=== PATIENT | female | born 2000 | race Caucasian/White ===

== ENCOUNTER 2024-08-12 08:00 | Inpatient (IN) | payer SELFPAY ==
[2024-08-12] VITALS (84 sets, daily range): BP systolic 81–144; BP diastolic 51–88; PULSE 84–113; RESP 16–18; TEMP 36.2–37.1; O2SAT 91–100; BMI 23.5
[2024-08-12 07:59] LABS: ROM Internal Control Test YES-OK TO RESULT pt. (Internal QC)
[2024-08-12 08:01] LABS: ROM Patient Test POSITIVE (Negative); Record Kit Lot#, ROM+ K3358
[2024-08-12] MEDS: Lactated Ringers 1,000 ML 999 ML IV (08:10)
[2024-08-12 08:25] LABS: Mucous, Urine 0 SEEN /hpf (<or=2+); White Blood Cells 0 SEEN /hpf (0-5)
[2024-08-12] MEDS: Nalbuphine 10 MG/ML Ampul 5 MG IV (08:33)
[2024-08-12 08:40] LABS: Absolute Lymphocyte Count 1.27 X10^3/uL (0.83-4.51); Absolute Neutrophil Count 12.6 X10^3/uL (2.0-7.7); Basophil# 0.04 X10^3/uL; Basophil% 0.3 % (0-1); Hematocrit 39.1 % (37-47); Hemoglobin 13.9 g/dL (12.0-15.0); Lymphocyte # 1.27 X10^3/ul (0.83-4.51); Lymphocyte % 8.7 % (19-41); Mean Corp Hgb Conc 35.5 g/dL (32-36); Mean Corpuscular Hgb 30.3 pg (27.0-32.0); Mean Corpuscular Volume 85.4 fL (81-99); Monocyte# 0.68 X10^3/uL; Monocyte% 4.6 % (0-10); NRBC Flagged by Analyzer 0 % (0-5); Neutrophil # 12.55 X10^3/uL (2.7-7.7); Neutrophil % 85.6 % (47-70); Platelet Count 242 K/mm3 (150-450); RBC Distribution Width CV 12.9 % (11.6-14.6); RBC Distribution Width SD 39.4 fl (35.1-43.9); Red Blood Count 4.58 M/mm3 (4.2-5.4); White Blood Count 14.7 K/mm3 (4.4-11.0)
[2024-08-12 08:43] LABS: Color, Urine Yellow (Yellow); Glucose, Dipstick Normal (Normal); Leukocyte Esterase-Dipstick Negative /ul (Negative); Nitrite-Dipstick Negative (Negative); Occult Blood-Urine 150 /ul (Negative); Protein-Dipstick 30 mg/dl (Negative); Urine Bilirubin Dipstick Negative (Negative); Urine Clarity Sl. Cloudy (Clear); Urine Urobilinogen Normal (Normal)
[2024-08-12 08:46] LABS: Ketone-Dipstick 150 mg/dl (Negative)
[2024-08-12 08:47] LABS: Protein, Urine (Random) 32.7 mg/dL (0.0-12.0); Protein:Creat Ratio 214 mg/g CRE (0-200)
[2024-08-12 08:52] LABS: Bacteria 1+ /hpf (None Seen); Red Blood Cells-Urine 0-5 SEEN /hpf (0-5); Squamous Epithelial Cells - UA 0-5 SEEN /hpf (5-10)
[2024-08-12] MEDS: Lactated Ringers 1,000 ML 200 ML IV (09:00)
[2024-08-12 09:30] LABS: Hepatitis C Antibody Nonreactive (Nonreactive)
[2024-08-12 09:43] LABS: EST Glomerular Filtration Rate 139 (>60); HIV Nonreactive (Nonreactive); Hepatitis B Surface Antigen Nonreactive (Nonreactive); Rubella IgG Nonreactive (Nonreactive); Syphilis Antibodies Nonreactive (Nonreactive)
[2024-08-12] MEDS: fentaNYL-bupivacaine (epidural) 100 ML BAG EPIDURAL (09:47)
[2024-08-12 09:55] LABS: ALB/GLOB Ratio 1.3 RATIO (0.9-2.4); AST(SGOT) 19 U/L (<=31); Alanine Aminotransfer ALT/SGPT 15 U/L (<=34); Albumin, Serum 3.9 g/dL (3.5-5.0); Alkaline Phosphatase 140 U/L (35-104); Anion Gap 13 (5-15); BUN 8 mg/dL (4-19); BUN/Creat Ratio 15.6 RATIO (10-20); Calcium,Total 9.4 mg/dL (7.6-11.0); Carbon Dioxide 20.1 mmol/L (21.0-32.0); Chloride 103 mmol/L (98-108); Estimated Creatinine Clearance 165.22 ml/min (50-250); Globulin 2.9 g/dL (2.2-4.2); Glucose 100 mg/dL (70-99); Potassium 3.8 mmol/L (3.3-5.1); Protein, Total 6.8 g/dL (5.9-8.4); Sodium Level 136 mmol/L (133-145); Total Bilirubin 0.61 mg/dL (0.00-1.30)
--- NOTE | 2024-08-12 09:56 | PCM.HP.OB ---
HPI - General General Date of Admission: 08/12/24 HPI Narrative SIMA JOHNSON, is a 23 F @ 39.4 weeks based on LMP who presents from [facility] with inability to tolerate labor at home- reports has been in labor since yesterday- strong contractions every few minutes ? 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 pt unable to tolerate fluids overnight due to pain- was vomiting. PFSH PFSH Allergy/AdvReac Type Severity Reaction Status Date / Time No Known Allergies Allergy Verified 08/12/24 07:18 NST FHR Rate Baby A Baseline: 130 Variability:: Moderate Accelerations:: 15 x 15 Decelerations:: None NST Reactive:: Yes FHR Category:: Category I Uterine Activity:: irregular Vital Signs Vital Signs Vital Signs: 08/12/24 07:13 08/12/24 07:13 08/12/24 07:13 Temperature 97.7 F L Temperature Source Temporal Pulse Rate Respiratory Rate 16 Blood Pressure BP Systolic BP Diastolic Pulse Ox 08/12/24 07:16 08/12/24 07:16 08/12/24 09:00 Temperature Temperature Source Pulse Rate 108 H Respiratory Rate Blood Pressure 114/68 143/80 H BP Systolic 114 143 BP Diastolic 68 80 Pulse Ox 08/12/24 09:00 08/12/24 09:00 08/12/24 09:05 Temperature Temperature Source Pulse Rate 97 99 Respiratory Rate Blood Pressure BP Systolic BP Diastolic Pulse Ox 98 08/12/24 09:05 08/12/24 09:06 08/12/24 09:06 Temperature Temperature Source Pulse Rate 96 Respiratory Rate Blood Pressure 128/79 H BP Systolic 128 BP Diastolic 79 Pulse Ox 98 08/12/24 09:10 08/12/24 09:10 08/12/24 09:12 Temperature Temperature Source Pulse Rate 96 Respiratory Rate Blood Pressure 103/68 BP Systolic 103 BP Diastolic 68 Pulse Ox 97 08/12/24 09:12 08/12/24 09:15 08/12/24 09:15 Temperature Temperature Source Pulse Rate 106 H 109 H Respiratory Rate Blood Pressure 102/62 BP Systolic 102 BP Diastolic 62 Pulse Ox 08/12/24 09:15 08/12/24 09:15 08/12/24 09:20 Temperature Temperature Source Pulse Rate 104 H Respiratory Rate Blood Pressure 106/57 L BP Systolic 106 BP Diastolic 57 Pulse Ox 97 08/12/24 09:20 08/12/24 09:20 08/12/24 09:25 Temperature Temperature Source Pulse Rate 113 H Respiratory Rate Blood Pressure 101/56 L BP Systolic 101 BP Diastolic 56 Pulse Ox 98 08/12/24 09:25 08/12/24 09:31 08/12/24 09:31 Temperature Temperature Source Pulse Rate 109 H 100 Respiratory Rate Blood Pressure 110/66 BP Systolic 110 BP Diastolic 66 Pulse Ox 08/12/24 09:35 08/12/24 09:35 08/12/24 09:41 Temperature Temperature Source Pulse Rate 97 Respiratory Rate Blood Pressure 101/61 116/65 BP Systolic 101 116 BP Diastolic 61 65 Pulse Ox 08/12/24 09:41 08/12/24 09:42 08/12/24 09:42 Temperature Temperature Source Pulse Rate 100 107 H Respiratory Rate Blood Pressure BP Systolic BP Diastolic Pulse Ox 91 08/12/24 09:42 08/12/24 09:42 08/12/24 09:45 Temperature Temperature Source Pulse Rate 93 Respiratory Rate Blood Pressure 106/70 BP Systolic 106 BP Diastolic 70 Pulse Ox 98 08/12/24 09:45 08/12/24 09:47 08/12/24 09:47 Temperature Temperature Source Pulse Rate 100 96 Respiratory Rate Blood Pressure BP Systolic BP Diastolic Pulse Ox 99 08/12/24 09:50 08/12/24 09:50 08/12/24 09:52 Temperature Temperature Source Pulse Rate 113 H 111 H Respiratory Rate Blood Pressure 99/64 BP Systolic 99 BP Diastolic 64 Pulse Ox 08/12/24 09:52 Temperature Temperature Source Pulse Rate Respiratory Rate Blood Pressure BP Systolic BP Diastolic Pulse Ox 99 Weight Weight: 66.1 kg Body Mass Index (BMI) 23.5 Physical Exam Narrative VE: 2/90/-2 IUPC placed- forebag ruptured. Const alert and oriented x3 General Appearance: cooperative HEENT normocephalic GI GI Narrative: Gravid, non tender to palpation. OB / External & Speculum: external exam normal Extremity normal to inspection Skin no rashes or lesions noted Neuro oriented x3 and CN's II-XII intact bilaterally Psych Appearance: grossly normal Labs Labs Labs: Blood Type O POSITIVE Antibody Screen NEGATIVE Hct 39.1 % (37-47) Hgb 13.9 g/dL (12.0-15.0) Syphilis Total Ab Nonreactive (Nonreactive) Rubella IgG Antibody Nonreactive (Nonreactive) Hep Bs Antigen Nonreactive (Nonreactive) Hepatitis C Antibody Nonreactive (Nonreactive) HIV 1&2 Antibody Nonreactive (Nonreactive) Assessment & Plan (1) No care in current : QUALIFIERS: Trimester: third trimester Qualified Code(s): O09.33 - Supervision of with insufficient care, third trimester (2) 39 weeks gestation of : (3) SROM (spontaneous rupture of membranes): PLAN: Plan Admit to L&D Mont[facility] FHR/TOCO Epidural if requested for pain Monitor VS Anticipate labs to be drawn ROM plus was positive start pitocin pelvis feels adequate- EFW 7lbs
[2024-08-12 10:01] LABS: Buprenorphine Urine NEGATIVE (< 200 ng/mL); Fentanyl, Urine NEGATIVE; Oxycodone, Urine NEGATIVE (< 100 ng/mL)
[2024-08-12 10:05] LABS: Amphetamine Urine NEGATIVE (<1000 ng/mL); Barbiturate Urine NEGATIVE (< 200 ng/mL); Benzodiazepine Urine NEGATIVE (< 200 ng/mL); Cocaine Urine NEGATIVE (< 300 ng/mL); Methadone Urine NEGATIVE (< 300 ng/mL); Opiates Urine NEGATIVE (< 300 ng/mL); PCP Urine NEGATIVE (< 25 ng/mL); THC Urine NEGATIVE (< 50 ng/mL)
[2024-08-12 10:30] LABS: Hemoglobin A1c 4.9 % (<=5.6)
[2024-08-12] MEDS: LACTATED RINGERS 500 ML 999 ML IV (10:35)
[2024-08-12] MEDS: Oxytocin 15 Units/NS 250ml 15 UNITS/250 ML IV.SOLN 2 UNITS IV (11:22)
--- NOTE | 2024-08-12 15:18 | EX.PCM.OBVAG ---
Assessment & Plan (1) No care in current : QUALIFIERS: Trimester: third trimester Qualified Code(s): O09.33 - Supervision of with insufficient care, third trimester (2) (spontaneous vaginal delivery): (3) Laceration, obstetrical, second degree: Maternal Data Information RADHA Calculator Estimated Delivery Date Method Current WG Current Estimate 08/15/24 Manual 39w 4d Vaginal Delivery Vaginal Delivery Information Procedure Performed: Spontaneous Vaginal Delivery Pre-Procedure Diagnosis: Term gestation, Spontaneous onset of labor Post-Procedure Diagnosis: , Live female infant Type of anesthesia: Epidural and Local with 1% Lidocaine Estimated Blood Loss: 350 Time of Delivery: 14:44 Findings Description of procedure: Patient progressed to complete dilation. Applied warm compresses and pressure to perineum during pushing. Patient only having minimal relief from epidural. With good maternal effort, head delivered followed by anterior shoulder and remainder of body without any force, delay, or traction. Loose nuchal cord easily reduced. Vigorous female was delivered atraumatically and placed on maternal abdomen. Pitocin IV started for active management of the third stage of labor. 3 vessel cord clamped and cut after delay and placed immediately skin to skin with patient. Placenta delivered spontaneously and intact. A second degree laceration was repaired in usual fashion using 3-0 Vicryl Rapid. Local anesthetic placed due to patient feeling pain with repair. Hemostasis obtained. Vaginal sweep performed. Fundus is firm 2 below U and bleeding is hemostatic. Rectal exam completed. Sponge and sharps counts correct. Patient and infant bonding well at this time. Dr. Miller notified of delivery. Routine post orders placed. 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
[2024-08-12] MEDS: Lidocaine 1% (20 ml mdv) 20 ML Vial INFILT (15:25)
[2024-08-12] MEDS: Oxytocin 15 Units/NS 250ml 15 UNITS/250 ML IV.SOLN 83 UNITS IV (15:47)
[2024-08-12] MEDS: Acetaminophen 500 MG Tablet 1000 MG PO (23:35)
[2024-08-13] VITALS (8 sets, daily range): BP systolic 113–127; BP diastolic 56–79; PULSE 81–104; RESP 16–18; TEMP 36.1–36.7; O2SAT 96–99
--- NOTE | 2024-08-13 06:10 | DS.PCM_ITS ---
Providers Date of Admission: 08/12/24 Primary Care Physician: No Primary Care Phys Reason For Visit: VAGINAL DELIVEREY Diagnosis Discharge Diagnosis (1) No care in current : Status: Acute Code(s): O09.30 - Supervision of with insufficient care, unspecified trimester Qualifiers: Trimester: third trimester Qualified Code(s): O09.33 - Supervision of with insufficient care, third trimester (2) (spontaneous vaginal delivery): Status: Acute Code(s): O80 - Encounter for full-term uncomplicated delivery (3) Laceration, obstetrical, second degree: Status: Acute Code(s): O70.1 - Second degree perineal laceration during delivery Plan PPD 1 Pain controlled D/C home with follow up in office or with twisting frame changer Discussed with patient if desires home in future that she can still complete co care in office Hospital Course Operations None Procedures None Summary of Care Provided Minutes Spent on Discharge: 15 Hospital Course: Patient had vaginal delivery. Hospital course was uneventful. Physical Exam Narrative Patient seen at bedside. Denies pain. Ambulating and voiding without difficulty. Lochia decreased. Desires discharge home today. Const alert and oriented x3 General Appearance: Negative for in distress HEENT normocephalic Eyes General Eye: normal appearance of both eyes Neck General: normal visual inspection Chest Chest: symmetrical chest wall rise Resp normal respiratory effort and normal air movement Effort and Inspection: symmetric chest movement; Negative for tachypneic Auscultation: clear to auscultation bilaterally Cardio regular rate and regular rhythm Peripheral Pulses: pulses 2+ throughout GI normal to inspection, nondistended, normoactive bowel sounds Narrative: Ice to perineum OB / External & Speculum: vaginal bleeding and other Lochia decreasing Uterus Palpation: uterus fundus firm (Below U) Extremity normal to inspection, full ROM and normal capillary refill Skin no rashes or lesions noted Neuro oriented x3, CN's II-XII intact bilaterally and gait normal Psych mental status grossly normal, thought process normal and activity/motor behavior normal Weight / BMI Weight Weight: 145 lb 11.609 oz Body Mass Index (BMI) 23.5 ABG / Lab / Microbiology Data 08/12/24 08:05 08/12/24 08:05 Laboratory: Laboratory Results - last 24 hr 08/12/24 07:25: Vag Amniotic Fld Detect POSITIVE H 08/12/24 08:05: WBC 14.7 H, RBC 4.58, Hgb 13.9, Hct 39.1, MCV 85.4, MCH 30.3, MCHC 35.5, RDW Std Deviation 39.4, RDW Coeff of Valeria 12.9, Plt Count 242, MPV 11.0, Immature Gran % (Auto) 0.800, Neut % (Auto) 85.6 H, Lymph % (Auto) 8.7 L, [place] % (Auto) 4.6, Eos % (Auto) 0.0, Baso % (Auto) 0.3, Absolute Neuts (auto) 12.6 H, Absolute Lymphs (auto) 1.27, Nucleated RBC % 0, Sodium 136, Potassium 3.8, Chloride 103, Carbon Dioxide 20.1 L, Anion Gap 13, BUN 8, Creatinine 0.50 L , Estim Creat Clear Calc 165.22, Est GFR (MDRD) Non-Af 139, BUN/Creatinine Ratio 15.6, Glucose 100 H, Hemoglobin A1c 4.9, Calcium 9.4, Total Bilirubin 0.61, AST 19, ALT 15, Alkaline Phosphatase 140 H, Total Protein 6.8, Albumin 3.9, Globulin 2.9, Albumin/Globulin Ratio 1.3, Urine Color Yellow, Urine Clarity Sl. Cloudy, Urine pH 6.0, Ur Specific [place] 1.010, Urine Protein 30 H, Urine Glucose (UA) Normal, Urine Ketones 150 A*, Urine Occult Blood 150 H, Urine Nitrite Negative, Urine Bilirubin Negative, Urine Urobilinogen Normal, Ur Leukocyte Esterase Negative, Urine RBC 0-5 SEEN, Urine WBC 0 SEEN, Ur Squamous Epith Cells 0-5 SEEN, Urine Bacteria 1+, Urine Mucus 0 SEEN, U Random Total Protein 32.7 H, Urine Creatinine 153.00, Protein/Creatinin Ratio 214 H, Urine Opiates Screen NEGATIVE, U Buprenorphine Qual NEGATIVE, Ur Oxycodone Screen NEGATIVE, Urine Methadone Screen NEGATIVE, Urine Fentanyl Screen NEGATIVE, Ur Barbiturates Screen NEGATIVE, Ur Phencyclidine Scrn NEGATIVE, Ur Amphetamines Screen NEGATIVE, MDMA (Ecstasy) Screen Cancelled, U Benzodiazepines Scrn NEGATIVE, Urine Cocaine Screen NEGATIVE, U Cannabinoids Screen NEGATIVE, Ur Drug Screen Comment Cancelled, Syphilis Total Ab Nonreactive, Hep Bs Antigen Nonreactive, Hepatitis C Antibody Nonreactive, HIV 1&2 Antibody Nonreactive, Rubella IgG Antibody Nonreactive, Blood Type O POSITIVE, Antibody Screen NEGATIVE Microbiology: Microbiology 08/12/24 08:05 Urine, Clean Catch Chlamydia/Neisseria (PCR) - Final 08/12/24 08:30 Genital vaginal Group B Streptococcus (PCR) - Final D/C Instructions Discharge Diet: No restrictions Discharge Activity: Return to Normal Activity, No Restrictions, May Drive, May Shower and May Take a Tub Bath (Warm water only. No bath salts, soaps, bubbles) May resume sexual activity in: 6-8 weeks Weight Bearing Status: Weight bearing as tolerated Call your doctor if you observe: Fever of 101 or Higher, Inability to urinate, Using more than 1 pad per hour, Shortness of breath, Dizziness, Chest pain, Calf discomfort and Uncontrolled pain DC O2, CPAP, BIPAP Needs Home O2 Discharge instructions: No Please Follow Up With: [facility] Rupert MICHAEL When: 2 weeks in office or virtual Meaningful Use Info Meaningful Use Meaningful Use Diagnoses (Choose all that apply): None applicable Ischemic Stroke Statin Dosing Therapy Reference: STATIN DOSE THERAPY REFERENCE: * Patients > 75 years receive moderate or high dose statin therapy. * Patients 75 years or YOUNGER should receive HIGH intensity statin dose unless contraindicated. You will be required to document reason for non-treatment if statin daily dose does not meet guidelines. HIGH DOSE STATIN THERAPY DAILY Atorvastatin > than or = to 40 mg Rosuvastatin > than or = to 20 mg Amlodipine + Atorvastatin > than or = to 2.5/40 mg Ezetimibe + Simvastatin 10/80 mg Simvastatin 80mg Discharge Plan Admission Admit Date/Time: 08/12/24 08:00 Primary Reason for Your Visit: Labor and Delivery Attending Provider: Dilma Cabrera Primary Care Provider: Care Physician,No Primary Discharge Orders/Prescriptions Referrals / Follow Up: Dilma Cabrera CNM [Med Staff - [facility] Practice Prof] - Care Physician,No Primary [Primary Care Provider] - Disposition Disposition (needs filled in before D/C Order can be placed): Home, Self Care
[2024-08-13] MEDS: Acetaminophen 500 MG Tablet 1000 MG PO (11:12)
== END 2024-08-13 16:30 | disposition home or self-care (01) | DRG 807 ==
LOC: WPOUT 08:18 → WP 08:18
PROVIDERS: Admitting Provider Obstetrics & Gynecology; Referring Provider Obstetrics & Gynecology; Visit Provider Advanced Practice Midwife
DX: O42.02 Full-term premature rupture of membranes, onset of labor within 24 hours of rupture (principal); Z37.0 Single live birth; O69.81X0 Labor and delivery complicated by cord around neck, without compression, not applicable or unspecified; O70.1 Second degree perineal laceration during delivery; Z3A.39 39 weeks gestation of pregnancy
CPT/HCPCS: 59025; 59050; 80053; 80307; 81001; 82570; 83036; 84112; 84156; 85025; 86703; 86762; 86780; 86803; 86850; 86900; 86901; 87081; 87340; 87491; 87591; 87653; 99221; G0378